=== PATIENT | female | born 1955 | race Caucasian/White ===

== ENCOUNTER → 2017-12-21 | Outpatient (CLI) | payer OTHER ==
[~2017-12-21] MED LIST: CHOL100027 PO; FISHOIL PO; GLCSUNK PO; VITA100C2 PO; VITAMIN K PO
--- NOTE | 2017-12-21 16:58 | DIAGNOSTIC IMAGING REPORT ---
L-SPINE MIN 4 VIEWS ROUTINE CLINICAL HISTORY: Low back pain. COMPARISON: Lumbar spine radiographs March 14, 2012. FINDINGS: An old moderate L1 compression fracture is unchanged since exam of March 14, 2012. There is no acute lumbar spine fracture or subluxation. There is minimal multilevel degenerative disc disease. Moderate lower lumbar spine facet arthrosis is noted. A developing staghorn calculus within the right collecting system is noted. IMPRESSION: 1. No acute lumbar spine fracture. 2. Old moderate L1 compression fracture. 3. Mild multilevel degenerative disc disease and moderate multilevel facet arthrosis of the lumbar spine. 4. Developing right renal staghorn calculus. Electronically signed by: Joshua Toth M.D. 12/21/2017 4:57 PM Dictated Date/Time: 12/21/2017 4:52 PM
== END | disposition home or self-care (01) ==
LOC: C.RAD1850 16:42
PROVIDERS: ATTEND Nurse Practitioner Family
DX: M54.5 Low back pain (principal); Z87.39 Personal history of other diseases of the musculoskeletal system and connective tissue; M48.56XS Collapsed vertebra, not elsewhere classified, lumbar region, sequela of fracture; M51.36 Other intervertebral disc degeneration, lumbar region; Z88.1 Allergy status to other antibiotic agents